=== PATIENT | male | born 1995 | race Caucasian/White ===

== ENCOUNTER 2018-08-29 21:52 | Emergency (ER) | payer BC ==
[~2018-08-29] VITALS: Ht 188 cm; Wt 100.2 kg
[2018-08-29 21:59] VITALS: BP 121/72
--- NOTE | 2018-08-29 22:05 | NUR ---
PT WHEELCHAIR TO BED 10 W/ FAMILY.
--- NOTE | 2018-08-29 22:10 | NUR ---
PT PRESENTS TO ED WITH C/O L ANKLE PAIN S/P FALL WHILE PLAYING BASKETBALL. SWELLING NOTED TO LEFT ANKLE. PT HAS FULL ROM TO ANKLE, CMS INTACT, PEDAL PULSES PRESENT AND EQUAL. PT PLACED INTO BED, PENDING MD MCKAY.
[2018-08-29] MEDS ORDERED: HYDROcodone/APAP 5/325 MG 1 TAB TAB PO ONE (22:55)
--- NOTE | 2018-08-29 23:54 | NUR ---
3 INCH NIRAJ WRAP APPLIED TO PT L ANKLE. +CSM
--- NOTE | 2018-08-29 23:55 | NUR ---
PT GIVEN ONE ON ONE INSTRUCTION ON PROPER USE OF CRUTCHES. CRUTCHES FITTED TO PROPER HEIGHT WITH 2 INCH SPACE BETWEEN TOP OF CRUTCHES AND ARMPIT WELL HANDLES RESTING AT PT WRISTS. PT DEMONSTRATED PROPER MOVEMENT FOR APPROXIMATELY 20 FEET
[2018-08-30 00:02] VITALS: BP 121/72
== END 2018-08-30 00:02 | disposition home or self-care (01) ==
LOC: MED 21:52
DX: S93.402A Sprain of unspecified ligament of left ankle, initial encounter (principal); X58.XXXA Exposure to other specified factors, initial encounter; Y93.67 Activity, basketball; Y92.89 Other specified places as the place of occurrence of the external cause; Y99.8 Other external cause status
CPT/HCPCS: 73610; 99283; Q0092